=== PATIENT | female | born 1965 | race Two or more races ===

== ENCOUNTER 2017-12-05 14:24 | Outpatient (CLI) | payer OTHER ==
[~2017-12-05 14:24] MED LIST: NORFLEX100MG PO
== END 2017-12-05 14:37 | disposition home or self-care (01) ==
LOC: RAD 14:24
DX: M25.551 Pain in right hip (principal)

== ENCOUNTER 2018-10-23 11:44 | Outpatient (CLI) | payer OTHER | END 2018-10-23 12:57 | disposition home or self-care (01) | LOC: MAMO-SONO 11:44 | DX: Z12.31 Encounter for screening mammogram for malignant neoplasm of breast (principal); N63.10 Unspecified lump in the right breast, unspecified quadrant; N63.20 Unspecified lump in the left breast, unspecified quadrant ==

== ENCOUNTER 2020-12-12 15:41 | Emergency (ER) | payer OTHER ==
[~2020-12-12] VITALS: Ht 152.4 cm; Wt 101.6 kg
== END 2020-12-12 19:28 | disposition home or self-care (01) ==
LOC: ER 15:41
DX: R25.2 Cramp and spasm (principal)